=== PATIENT | male | born 1955 | race Caucasian/White ===

== ENCOUNTER → 2020-08-16 | Outpatient (CLI) | payer BC ==
--- NOTE | 2020-08-17 12:07 | RAD ---
EXAM: XR SHOULDER_RIGHT 2+ VIEWS 08/16/2020 12:40 PM CLINICAL INDICATION: Right shoulder pain COMPARISON: None TECHNIQUE: 3 views of the right shoulder FINDINGS: No acute fracture or malalignment. Acromioclavicular and glenohumeral joints are maintaine d. Subacromial space is preserved. No soft tissue abnormality. IMPRESSION: Unremarkable right shoulder radiograph. Electronically signed by: Lacy Denson MD (08/17/2020 12:05 PM) [id number]
== END ==
LOC: MERGE 12:29 → DXRAD 12:29
PROVIDERS: ATTEND Physician Assistant
DX: M25.511 Pain in right shoulder (principal)
CPT/HCPCS: 73030